=== PATIENT | female | born 1990 | race Caucasian/White ===

== ENCOUNTER 2019-05-26 17:51 | Emergency (ER) | payer SELFPAY ==
[2019-05-26] MEDS ORDERED: NS 0.9% 1000 ML** 1,000 ML IV ONE ×2 (18:33→19:16)
[2019-05-26] MEDS ORDERED: Acetaminophen TAB* 325 MG PO ONE (18:33)
[2019-05-26 18:35] LABS: Hematocrit 40 % (35-47); Hemoglobin 13.4 g/dL (12.0-16.0); Mean Corpuscular HGB Conc 34 g/dL (31-36); Mean Corpuscular Hemoglobin 33 pg (27-31); Mean Corpuscular Volume 96 fL (80-97); Mean Platelet Volume 7.3 fL (7.4-10.4); Platelet Count 199 10^3/uL (150-450); Red Blood Count 4.11 10^6 /uL (3.70-4.87); Red Cell Distribution Width 13 % (10-15); White Blood Count 14.6 10^3/uL (3.5-10.8)
--- NOTE | 2019-05-26 18:45 | ED ---
Back Pain - HPI Summary HPI Summary: Pt is a 28 y/o M presenting to the ED with a chief complaint of back pain initially onset about 3 days ago. She notes it began on the night of 05/22/19, was somewhat better on 05/23/19, and then worsened since then. It now encompasses her abdomen. She reports fever, chills, abd pain, back pain, vomiting, decreased urination, and urgency with urination. She denies diarrhea, dysuria, vaginal discharge, vaginal bleeding, or hematuria. Medications reviewed. Allergies noted. - History of Current Complaint Chief Complaint: EDAbdPain Stated Complaint: ABDOMINAL PAIN PER PT Time Seen by Provider: 05/26/19 18:21 Hx Obtained From: Patient Onset/Duration: Gradual Onset, Lasting Days, Still Present Onset/Duration: Started Days Ago, Atraumatic, Still Present Timing: Constant, Lasting Days Back Pain Location: Is Discrete @ - bilateral back, abdomen Severity Initially: Moderate Severity Currently: Severe Pain Intensity: 7 Pain Scale Used: 0-10 Numeric Aggravating Symptom(s): Movement Alleviating Symptom(s): Nothing Associated Signs And Symptoms: Positive: Fever, Abdominal Pain, Flank Pain - Allergies/Home Medications Allergies/Adverse Reactions: Allergies Allergy/AdvReac Type Severity Reaction Status Date / Time No Known Allergies Allergy Verified 05/26/19 17:54 PMH/Surg Hx/FS Hx/Imm Hx Previously Healthy: Yes Endocrine/Hematology History: Denies: Hx Diabetes Cardiovascular History: Denies: Hx Hypertension Infectious Disease History: No Infectious Disease History: Denies: Traveled Outside the [place] in Last 30 Days - Family History Known Family History: Negative: Diabetes - Social History Alcohol Use: Daily Hx Substance Use: Yes Substance Use Type: Reports: Marijuana Hx Tobacco Use: Yes Smoking Status (MU): Current Every Day Smoker Review of Systems Positive: Fever, Chills Positive: Abdominal Pain, Vomiting. Negative: Diarrhea Positive: frequency - decreased frequency with increased water intake, urgency. Negative: dysuria, discharge - vaginal, hematuria, other - vaginal bleeding Positive: Myalgia - back pain All Other Systems Reviewed And Are Negative: Yes Physical Exam - Summary Physical Exam Summary: Constitutional: Well-developed, Well-nourished, Alert. (-) Distressed Skin: Warm, Diaphoretic HENT: Normocephalic; Atraumatic Eyes: Conjunctiva normal Neck: Musculoskeletal ROM normal neck. (-) JVD, (-) Stridor, (-) Tracheal deviation Cardio: Rhythm regular, rate normal, Heart sounds normal; Intact distal pulses; Radial pulses are 2+ and symmetric. (-) Murmur Pulmonary/Chest wall: Effort normal. (-) Respiratory distress, (-) Wheezes, (-) Rales Abd: Soft, RLQ and LLQ tenderness, (-) Distension, (-) Guarding, (-) Rebound Back: No CVA tenderness Musculoskeletal: (-) Edema Lymph: (-) Cervical adenopathy Neuro: Alert, Oriented x3 Psych: Mood and affect Normal Triage Information Reviewed: Yes Vital Signs On Initial Exam: Initial Vitals Temp Pulse Resp BP Pulse Ox 101.9 F 103 18 110/73 99 05/26/19 17:52 05/26/19 17:52 05/26/19 17:52 05/26/19 17:52 05/26/19 17:52 Vital Signs Reviewed: Yes Procedures - Sedation Patient Received Moderate/Deep Sedation with Procedure: No Diagnostics - Vital Signs Vital Signs Temp Pulse Resp BP Pulse Ox 05/26/19 17:52 101.9 F 103 18 110/73 99 - Laboratory Lab Results: Lab Results 05/26/19 Range/Units 18:23 WBC 14.6 H (3.5-10.8) 10^3/uL RBC 4.11 (3.70-4.87) 10^6 /uL Hgb 13.4 (12.0-16.0) g/dL Hct 40 (35-47) % MCV 96 (80-97) fL MCH 33 H (27-31) pg MCHC 34 (31-36) g/dL RDW 13 (10-15) % Plt Count 199 (150-450) 10^3/uL MPV 7.3 L (7.4-10.4) fL Neut % (Auto) Pending Lymph % (Auto) Pending [place] % (Auto) Pending Eos % (Auto) Pending Baso % (Auto) Pending Absolute Neuts (auto) Pending Absolute Lymphs (auto) Pending Absolute Monos (auto) Pending Absolute Eos (auto) Pending Absolute Basos (auto) Pending Absolute Nucleated RBC Pending Nucleated RBC % Pending Result Diagrams: 05/26/19 18:23 05/26/19 18:23 Lab Statement: Any lab studies that have been ordered have been reviewed, and results considered in the medical decision making process. Back Pain Course/Dx - Course Course Of Treatment: Patient is here with pyelonephritis. Patient was febrile upon arrival and is borderline tachycardic. Patient was given Tylenol and IV fluids with improvement in her heart rate. Patient had CVA tenderness, nausea, urinary urgency. Patient had a UA which showed obvious UTI. Patient improved clinically throughout her stay here. Patient was given a dose of Rocephin and discharged on Keflex. - Diagnoses Provider Diagnoses: Pyelonephritis, Fever, Tachycardia Discharge ED - Sign-Out/Discharge Documenting (check all that apply): Patient Departure - Discharge Plan Condition: Stable Disposition: HOME Prescriptions: Cephalexin CAP* [Keflex CAP*] 500 mg PO QID 10 Days #40 cap Prochlorperazine TAB* [Compazine Tab*] 10 mg PO Q8H PRN #12 tab PRN Reason: Vomiting Patient Education Materials: Kidney Infection (ED) Forms: *Work Release Referrals: [facility] [Outside] Additional Instructions: Take your medications as prescribed. Return with worsening fever, worsening pain, vomiting that doesnt resolve with medicine, or any other concerning symptoms. Please take the next couple of days off of work. - Billing Disposition and Condition Condition: STABLE Disposition: Home - Attestation Statements Document Initiated by John: Yes Documenting Scribe: Libertad Wolff Provider For Whom John is Documenting (Include Credential): Daljit Ferrera MD. Scribe Attestation: Libertad Feldman, scribed for Daljit Ferrera MD. on 05/26/19 at 2111. Scribe Documentation Reviewed: Yes Provider Attestation: The documentation as recorded by the Libertad whitfield accurately reflects the service I personally performed and the decisions made by me, Daljit Ferrera MD. Status of Scribe Document: Viewed
[2019-05-26 18:55] LABS: ALT 10 U/L (7-52); AST 16 U/L (13-39); Albumin 4.3 g/dL (3.2-5.2); Albumin/Globulin Ratio 1.2 (1-3); Alkaline Phosphatase 60 U/L (34-104); Anion Gap 7 mmol/L (2-11); BUN/Creatinine Ratio 11.4 (8-20); Blood Urea Nitrogen 10 mg/dL (6-24); CO2 Carbon Dioxide 27 mmol/L (22-32); Calcium 9.3 mg/dL (8.6-10.3); Chloride 101 mmol/L (101-111); EGFR African American 91.9 (>60); Globulin 3.5 g/dL (2-4); Glucose 120 mg/dL (70-100); Potassium 3.3 mmol/L (3.5-5.0); Sodium 135 mmol/L (135-145); Total Protein 7.8 g/dL (6.4-8.9)
[2019-05-26 19:00] LABS: HCG Pregnancy < 0.60 mIU/mL
[2019-05-26 19:11] LABS: ABS Lymphocytes 1.6 10^3/ul (1.0-4.8); ABS Monocytes 0.9 10^3/ul (0-0.8); ABS Neutrophils 12.1 10^3/ul (1.5-7.7); Eosinophil % 0.1 %; Lymphocyte % 10.7 %
[2019-05-26 19:33] LABS: Urine Appearance Cloudy; Urine Bacteria Absent (Absent); Urine Bilirubin Negative (Negative); Urine Blood 1+ (Negative); Urine Color Yellow; Urine Glucose 1+(50 mg/dL) (Negative); Urine Ketones 2+ (Negative); Urine Nitrite Positive (Negative); Urine Protein 1+(30 mg/dL) (Negative); Urine Red Blood Cell 1+(3-5/hpf) (Absent); Urine Specific Gravity 1.017 (1.010-1.030); Urine Urobilinogen Negative (Negative); Urine White Blood Cell 3+(>20/hpf) (Absent)
[2019-05-26] MEDS ORDERED: cefTRIAXone(*) 1 GM in NS 0.9% 50 ML* 50 ML IVPB ONE (19:42)
[2019-05-26] MEDS ORDERED: Ibuprofen TAB* 600 MG PO ONE (20:12)
[2019-05-26 20:26] VITALS: BP 117/62
--- NOTE | 2019-05-28 06:28 | ED ---
Imaging and Labs Follow Up Follow Up Type: Labs/Cultures Labs/Culture Result: Preliminary urine culture shows greater than 100,000 Escherichia coli. Patient was given Keflex for UTI. Sensitivity report is still pending however it is presumed that this antibiotic is adequate for treating the strain of bacteria. Patient was treated appropriately. Patient Communication/Plan: Patient was treated appropriately. Awaiting sensitivity report. Nothing further at this time. Provider Diagnoses: Pyelonephritis, Fever, Tachycardia
== END 2019-05-26 20:25 | disposition home or self-care (01) ==
LOC: ED 17:51
DX: N10 Acute pyelonephritis (principal); B96.20 Unspecified Escherichia coli [E. coli] as the cause of diseases classified elsewhere; R50.9 Fever, unspecified; R00.0 Tachycardia, unspecified
CPT/HCPCS: 36415; 80053; 81003; 81015; 83690; 84702; 85025; 87077; 87086; 87186; 96361; 96374; 99283; A9270-GY; J0696